=== PATIENT | female | born 1990 | race Hispanic/Latino ===

== ENCOUNTER 2017-04-22 15:08 | Emergency (ER) | payer BC, OTHER ==
[2017-04-22 15:08] VITALS: BMI 34.7
[2017-04-22 15:15] VITALS: BP 162/92; PULSE 89; RESP 16; TEMP 97.6; O2SAT 100
--- NOTE | 2017-04-22 15:56 | ED PDOC ---
HPI: General Adult Time Seen by Provider: 04/22/17 15:18 Chief Complaint (Nursing): Back Pain Chief Complaint (Provider): Flank Pain History Per: Patient History/Exam Limitations: no limitations Onset/Duration Of Symptoms: Other (x 1 week) Current Symptoms Are (Timing): Still Present Additional Complaint(s): Ms. Adams is a 26 year old female, with a history of UTI and asthma, who presents to the ED with bilateral flank pain x 1 week. Patient states sometimes on one side and sometimes on the other side. No fever, nausea, vomiting, dysuria , hematuria or vaginal discharge. LMP 2 days ago. Patient works here. Urine dip was done here and showed trace leukocytes. Patient states pain worsen. PMD: No Family Provider. Past Medical History Reviewed: Historical Data, Nursing Documentation, Vital Signs Vital Signs: Last Vital Signs Temp 97.6 F 04/22/17 15:12 Pulse 89 04/22/17 15:12 Resp 16 04/22/17 15:12 BP 162/92 H 04/22/17 15:12 Pulse Ox 100 04/22/17 16:15 - Medical History PMH: Asthma (never hospitalized), Bronchitis (mar 2016), Fibromyalgia Denies: Chronic Kidney Disease - Surgical History Surgical History: Tonsillectomy - Family History Family History: States: No Known Family Hx - Home Medications Home Medications: Ambulatory Orders Medication Instructions Recorded Ondansetron [Zofran] 4 mg PO Q8H PRN #30 tab 04/06/16 Albuterol 0.083% [Albuterol 0.083% 1 appl IH BID PRN 06/22/16 Inhal Yamila (2.5 mg/3 ml) UD] Albuterol HFA [Ventolin HFA 90 2 puff IH Q6 PRN 06/22/16 mcg/actuation (8 g)] Budesonide/Formoterol Fumarate 2 puff IH BID 06/22/16 [Symbicort] Ethinyl Estradiol/Drospirenone 1 each PO DAILY 06/22/16 [Izzy 28 Tablet] Montelukast [Singulair] 10 mg PO HS 06/22/16 Omeprazole Magnesium [Prilosec Otc] 20 mg PO HS 06/22/16 - Allergies Allergies/Adverse Reactions: Allergies Allergy/AdvReac Type Severity Reaction Status Date / Time No Known Allergies Allergy Verified 04/22/17 15:12 Review of Systems ROS Statement: Except As Marked, All Systems Reviewed And Found Negative Constitutional: Negative for: Fever Gastrointestinal: Negative for: Nausea, Vomiting Genitourinary Female: Negative for: Dysuria, Vaginal Discharge Musculoskeletal: Positive for: Other (flank pain) Physical Exam - Reviewed Nursing Documentation Reviewed: Yes Vital Signs Reviewed: Yes - Physical Exam Appears: Positive for: Well, Non-toxic, No Acute Distress Head Exam: Positive for: ATRAUMATIC, NORMAL INSPECTION, NORMOCEPHALIC Skin: Positive for: Normal Color, Warm, Dry Eye Exam: Positive for: Normal appearance, EOMI, PERRL ENT: Positive for: Normal ENT Inspection Neck: Positive for: Normal, Supple Cardiovascular/Chest: Positive for: Regular Rate, Rhythm Respiratory: Positive for: Normal Breath Sounds. Negative for: Accessory Muscle Use, Respiratory Distress Gastrointestinal/Abdominal: Positive for: Normal Exam Back: Positive for: Normal Inspection. Negative for: L CVA Tenderness, R CVA Tenderness Extremity: Positive for: Normal ROM. Negative for: Deformity Neurologic/Psych: Positive for: Alert, marine diesel mechanic II-XII, Oriented (x 3). Negative for : Motor/Sensory Deficits - Laboratory Results Urine POC: Negative - ECG O2 Sat by Pulse Oximetry: 100 (RA) Pulse Ox Interpretation: Normal Medical Decision Making Medical Decision Making: Time: 15:25 Impression(s): Flank Pain r/o UTI Plan: - ED Urine - ED Urine Dipstick - Urine Culture - Urinalysis - Renal Ultrasound Scribe Attestation: Documented by Nikolay Hardy, acting as a scribe for Marilu Lizarraga MD Provider Scribe Attestation: All medical record entries made by the Scribe were at my direction and personally dictated by me. I have reviewed the chart and agree that the record accurately reflects my personal performance of the history, physical exam, medical decision making, and the department course for this patient. I have also personally directed, reviewed, and agree with the discharge instructions and disposition. discussed with patient regarding normal appearing kidneys on preliminary reading and absence of leukocytes in the UA. Will discharge. Disposition - Clinical Impression Clinical Impression: Flank pain - Patient ED Disposition Is Patient to be Admitted: No Doctor Will See Patient In The: Office Counseled Patient/Family Regarding: Diagnosis, Need For Followup - Disposition Disposition: Routine/Home Disposition Time: 17:59 Condition: STABLE Instructions: Flank Pain Forms: [facility] ([place]), [facility] ED School/Work Excuse - POA Present On Arrival: None
[2017-04-22 17:13] LABS: SQUAMOUS EPITHIAL 2 /hpf (0-5); URINE BACTERIA RARE (<OCC); URINE BILIRUBIN NEGATIVE (NEGATIVE); URINE BLOOD NEGATIVE (NEGATIVE); URINE CLARITY SLIGHTY-CLOUDY (Clear); URINE COLOR YELLOW (YELLOW); URINE GLUCOSE (UA) NEG (Normal); URINE LEUKOCYTE ESTERASE TRACE Leu/uL (Negative); URINE PROTEIN NEGATIVE (NEGATIVE); URINE UROBILINOGEN 0.2-1.0 mg/dL (0.2-1.0)
--- NOTE | 2017-04-23 10:21 | US ---
PROCEDURE: Ultrasound of the Kidneys HISTORY: flank pain x 1 week, persistent trace leuks in dip COMPARISON: None available. TECHNIQUE: Sonogram of the kidneys. FINDINGS: RIGHT KIDNEY: Measures: 9.6 x 5.5 x 5.6 cm. No obstructing calculus, hydronephrosis, or renal cyst identified. LEFT KIDNEY: Measures: 10.9 x 5.3 x 5.6 cm. No obstructing calculus, hydronephrosis, or renal cyst identified. OTHER FINDINGS: None. IMPRESSION: No obstructing calculus, hydronephrosis, or renal cyst identified. Renal size discrepancy with left kidney larger than the right as above. Preliminary impression was provided by virtual radiologic.
== END 2017-04-22 18:09 | disposition home or self-care (01) ==
LOC: H.ER 15:08
DX: R10.9 Unspecified abdominal pain (principal)

== ENCOUNTER 2017-06-15 17:23 | Emergency (ER) | payer OTHER ==
[2017-06-15 17:24] VITALS: BMI 34.7
[2017-06-15 17:34] VITALS: BP 138/89; PULSE 84; RESP 18; TEMP 98.2; O2SAT 99
[2017-06-15] MEDS ORDERED: Tdap Vaccine 0.5 ml Vial (10-64 yrs) IM ONE ×2 (17:37→17:47)
--- NOTE | 2017-06-15 17:43 | ED PDOC ---
Upper Extremity Pain/Injury Time Seen by Provider: 06/15/17 17:36 Chief Complaint (Nursing): Upper Extremity Problem/Injury Chief Complaint (Provider): Right index finger puncture wound History Per: Patient History/Exam Limitations: no limitations Onset/Duration Of Symptoms: Mins Current Symptoms Are (Timing): Still Present Additional Complaint(s): Puncture wound right index finger at work. Tetanus is not UTD. Past Medical History Reviewed: Historical Data, Nursing Documentation, Vital Signs Vital Signs: Last Vital Signs Temp 98.2 F 06/15/17 17:30 Pulse 84 06/15/17 17:30 Resp 18 06/15/17 17:30 BP 138/89 06/15/17 17:30 Pulse Ox 99 06/15/17 17:30 - Medical History PMH: Asthma (never hospitalized), Bronchitis (mar 2016), Fibromyalgia Denies: Chronic Kidney Disease - Surgical History Surgical History: Tonsillectomy - Family History Family History: States: No Known Family Hx - Living Arrangements Living Arrangements: With Family - Social History Current smoker - smoking cessation education provided: No Alcohol: Occasional Drugs: Denies - Home Medications Home Medications: Ambulatory Orders Medication Instructions Recorded Ondansetron [Zofran] 4 mg PO Q8H PRN #30 tab 04/06/16 Albuterol 0.083% [Albuterol 0.083% 1 appl IH BID PRN 06/22/16 Inhal Yamila (2.5 mg/3 ml) UD] Albuterol HFA [Ventolin HFA 90 2 puff IH Q6 PRN 06/22/16 mcg/actuation (8 g)] Budesonide/Formoterol Fumarate 2 puff IH BID 06/22/16 [Symbicort] Ethinyl Estradiol/Drospirenone 1 each PO DAILY 06/22/16 [Izzy 28 Tablet] Montelukast [Singulair] 10 mg PO HS 06/22/16 Omeprazole Magnesium [Prilosec Otc] 20 mg PO HS 06/22/16 Amoxicillin/Clavulanate [Augmentin 1 tab PO BID #20 tab 06/15/17 875 MG-125 MG] - Allergies Allergies/Adverse Reactions: Allergies Allergy/AdvReac Type Severity Reaction Status Date / Time No Known Allergies Allergy Verified 04/22/17 15:12 Review of Systems ROS Statement: Except As Marked, All Systems Reviewed And Found Negative Constitutional: Negative for: Fever, Chills Skin: Positive for: Other Physical Exam - Reviewed Nursing Documentation Reviewed: Yes Vital Signs Reviewed: Yes - Physical Exam Appears: Positive for: Well, Non-toxic, No Acute Distress Head Exam: Positive for: ATRAUMATIC, NORMAL INSPECTION, NORMOCEPHALIC Skin: Positive for: Warm. Negative for: Normal Color (right index finger, puncture wound) Eye Exam: Positive for: Normal appearance ENT: Positive for: Normal ENT Inspection Neck: Positive for: Normal Respiratory: Negative for: Accessory Muscle Use, Respiratory Distress Back: Positive for: Normal Inspection Extremity: Positive for: Normal ROM Neurologic/Psych: Positive for: Alert, Oriented - ECG O2 Sat by Pulse Oximetry: 99 Medical Decision Making Medical Decision Making: Tetanus vaccine given in ER. Antibiotic and dressing applied. Disposition - Clinical Impression Clinical Impression: Tetanus toxoid vaccination administered at current visit, Puncture wound - Patient ED Disposition Is Patient to be Admitted: No Counseled Patient/Family Regarding: Diagnosis, Need For Followup, Rx Given - Disposition Disposition: Routine/Home Disposition Time: 17:43 Condition: GOOD Prescriptions: Amoxicillin/Clavulanate [Augmentin 875 MG-125 MG] 1 tab PO BID #20 tab Instructions: Wound Care (DC)
== END 2017-06-15 17:53 | disposition home or self-care (01) ==
LOC: H.ER 17:23
DX: S61.240A Puncture wound with foreign body of right index finger without damage to nail, initial encounter (principal); W26.8XXA Contact with other sharp object(s), not elsewhere classified, initial encounter; Y99.0 Civilian activity done for income or pay

== ENCOUNTER 2018-02-05 14:54 | Emergency (ER) | payer OTHER ==
[2018-02-05 14:54] VITALS: BMI 34.7
[2018-02-05] MEDS ORDERED: Lactated Ringer's 1,000 ML IV STA (15:28)
[2018-02-05 16:07] LABS: BASO % 0.3 % (0.0-2.0); EOS % 0.5 % (0.0-4.0); HEMOGLOBIN 14.1 g/dL (12.0-16.0); LYMPH # 1.5 K/uL (1.0-4.3); LYMPH % 27.2 % (20.0-40.0); MEAN CELL VOLUME 87.7 fl (81.0-99.0); MEAN CORPUSCULAR HEMOGLOBIN 29.1 pg (27.0-31.0); MEAN CORPUSCULAR HGB CONC 33.2 g/dL (33.0-37.0); MONO # 0.5 K/uL (0.0-0.8); MONO % 8.5 % (0.0-10.0); NEUT # 3.4 K/uL (1.8-7.0); NEUT % 63.5 % (50.0-75.0); NRBC % 0.1 % (0.0-0.0); RBC 4.85 Mil/uL (3.80-5.20); RED CELL DISTRIBUTION WIDTH 14.2 % (11.5-14.5); WHITE BLOOD COUNT 5.4 K/uL (4.8-10.8)
[2018-02-05 16:09] LABS: INR 1.1; PROTHROMBIN TIME 12.9 Seconds (9.8-13.1)
[2018-02-05 16:15] LABS: ALBUMIN 4.3 g/dL (3.5-5.0); BLOOD UREA NITROGEN 13 mg/dl (7-17); CALCIUM 8.5 mg/dL (8.4-10.2); GFR NON-AFRICAN AMERICAN > 60; LIPASE 87 U/L (23-300)
--- NOTE | 2018-02-05 16:29 | ED PDOC ---
HPI: Abdomen Time Seen by Provider: 02/05/18 15:12 Chief Complaint (Nursing): Abdominal Pain Chief Complaint (Provider): Abdominal Pain History Per: Patient History/Exam Limitations: no limitations Onset/Duration Of Symptoms: Days (x1 night) Associated Symptoms: Nausea, Diarrhea. denies: Fever, Chills, Vomiting Additional Complaint(s): Angie Antno is a 27 year old female with no past medical history, who presents to the emergency department complaining of abdominal pain that started last night around 6pm. Patient describes it as cramping pain and associated with multiple episodes of non bloody diarrhea. She reports that the cramping pain is diffuse and occurs intermittently. Patient also states that she has constant pain in the RUQ, nausea, and loss of appetite. She denies any fever, chills travel, vomiting, urinary symptoms. 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 PMD: no provider OBGYN: Dr. Medina Past Medical History Vital Signs: Last Vital Signs Temp 98.0 F 02/05/18 15:07 Pulse 116 H 02/05/18 15:07 Resp 20 02/05/18 15:07 BP 136/91 H 02/05/18 15:07 Pulse Ox 99 02/05/18 15:07 - Medical History PMH: Asthma (never hospitalized), Bronchitis (mar 2016), Fibromyalgia Denies: Chronic Kidney Disease - Surgical History Surgical History: Tonsillectomy Other surgeries: adenoidectomy - Family History Family History: States: Unknown Family Hx - Home Medications Home Medications: Ambulatory Orders Medication Instructions Recorded Ondansetron [Zofran] 4 mg PO Q8H PRN #30 tab 04/06/16 Albuterol 0.083% [Albuterol 0.083% 1 appl IH BID PRN 06/22/16 Inhal Yamila (2.5 mg/3 ml) UD] Albuterol HFA [Ventolin HFA 90 2 puff IH Q6 PRN 06/22/16 mcg/actuation (8 g)] Budesonide/Formoterol Fumarate 2 puff IH BID 06/22/16 [Symbicort] Ethinyl Estradiol/Drospirenone 1 each PO DAILY 06/22/16 [Izzy 28 Tablet] Montelukast [Singulair] 10 mg PO HS 06/22/16 Omeprazole Magnesium [Prilosec Otc] 20 mg PO HS 06/22/16 Amoxicillin/Clavulanate [Augmentin 1 tab PO BID #20 tab 06/15/17 875 MG-125 MG] Dicyclomine [Bentyl] 20 mg PO QID PRN #20 tab 02/05/18 Ondansetron ODT [Zofran ODT] 1 odt PO Q6 PRN #20 odt 02/05/18 - Allergies Allergies/Adverse Reactions: Allergies Allergy/AdvReac Type Severity Reaction Status Date / Time No Known Allergies Allergy Verified 04/22/17 15:12 Review of Systems ROS Statement: Except As Marked, All Systems Reviewed And Found Negative Constitutional: Negative for: Fever, Chills Gastrointestinal: Positive for: Nausea, Abdominal Pain, Diarrhea. Negative for: Vomiting Physical Exam - Reviewed Nursing Documentation Reviewed: Yes Vital Signs Reviewed: Yes - Physical Exam Appears: Positive for: Non-toxic, In Acute Distress (mild painful distress ) Head Exam: Positive for: ATRAUMATIC, NORMOCEPHALIC Skin: Positive for: Warm, Dry Eye Exam: Positive for: EOMI, PERRL ENT: Negative for: Pharyngeal Erythema, Tonsillar Exudate Neck: Positive for: Painless ROM, Supple Cardiovascular/Chest: Positive for: Regular Rate, Rhythm. Negative for: Murmur Respiratory: Positive for: Normal Breath Sounds. Negative for: Wheezing Gastrointestinal/Abdominal: Positive for: Soft, Tenderness (with deep palpations of RUQ). Negative for: Mass, Distended, Guarding, Rebound, Other (Mcburney's point; Tiki's sign) Back: Positive for: Normal Inspection. Negative for: Muscle Spasm Extremity: Positive for: Normal ROM. Negative for: Deformity Lymphatic: Negative for: Adenopathy Neurologic/Psych: Positive for: Alert. Negative for: Motor/Sensory Deficits - Laboratory Results Result Diagrams: 02/05/18 16:01 02/05/18 16:01 - ECG O2 Sat by Pulse Oximetry: 99 (RA) Pulse Ox Interpretation: Normal Medical Decision Making Medical Decision Making: Time: 152 Impression: abdominal pain and diarrhea Differential diagnosis includes but is not limited to infectious diarrhea, gallbladder disease, pancreatitis Plan: --Cmp --Lipase --Magnesium phosphorous --Ed urine --Ed urine dipstick ---Cbc with differential --PTT --P T --Bentyl 20 mg PO --Lactated Rigners 1,000 ml --Urine culture --UA --Gallbladder US Accession No. : [id number] Patient Name / ID : SHANTELL NIX R / [id number] Exam Date : 02/05/2018 16:11:42 ( Approved ) Study Comment : Sex / Age : F / 27Y Creator : Ceferino Nagy MD Dictator : Ceferino Nagy MD Icing Machine Operator : Licensed And Certified Midwife : Ceferino Nagy MD Approver2 : Report Date : 02/05/2018 17:15:20 My Comment : Date of service: 02/05/2018 HISTORY: RUQ pain COMPARISON: None. TECHNIQUE: Sonographic evaluation of the right upper quadrant of the abdomen. FINDINGS: LIVER: Measures 15.0 cm in length. Normal echogenicity of the liver parenchyma. No mass. No intrahepatic bile duct dilatation. GALLBLADDER: Unremarkable. No gallstones. COMMON BILE DUCT: Measures 3 mm. No stones. No dilatation. PANCREAS: Unremarkable as visualized. No mass. No ductal dilatation. RIGHT KIDNEY: Measures 10.3 cm in length. Normal echogenicity. No calculus, mass, or hydronephrosis. AORTA: No aneurysmal dilatation. IVC: Unremarkable. OTHER FINDINGS: None . IMPRESSION: UNREMARKABLE ABDOMINAL ULTRASOUND EXAMINATION. NO EVIDENCE OF CHOLELITHIASIS OR CHOLECYSTITIS. Scribe Attestation: Documented by Dakota Baltazar, acting as a scribe for Khushboo Agarwal MD. Provider Scribe Attestation: All medical record entries made by the Scribe were at my direction and personally dictated by me. I have reviewed the chart and agree that the record accurately reflects my personal performance of the history, physical exam, medical decision making, and the department course for this patient. I have also personally directed, reviewed, and agree with the discharge instructions and disposition. Disposition - Clinical Impression Clinical Impression: Abdominal pain, Diarrhea - Disposition Referrals: [facility] [Outside] Disposition: Routine/Home Disposition Time: 17:15 Condition: STABLE Additional Instructions: FOLLOW UP WITH YOUR DOCTOR OR [employer] IN 48 HOURS FOR REEVALUATION Prescriptions: Dicyclomine [Bentyl] 20 mg PO QID PRN #20 tab PRN Reason: abdominal pain Ondansetron ODT [Zofran ODT] 1 odt PO Q6 PRN #20 odt PRN Reason: Nausea/Vomiting Instructions: Diarrhea in Adolescents and Adults, Acute Abdomen (Belly Pain), Adult (DC) Forms: [facility] ED School/Work Excuse
[2018-02-05 16:31] LABS: ALT/SGPT 23 U/L (9-52); AST/SGOT 28 U/L (14-36)
[2018-02-05 16:59] LABS: SQUAMOUS EPITHIAL 5 /hpf (0-5); URINE BACTERIA RARE (<OCC); URINE BILIRUBIN NEGATIVE (NEGATIVE); URINE BLOOD NEGATIVE (NEGATIVE); URINE CLARITY CLOUDY (Clear); URINE COLOR YELLOW (YELLOW); URINE GLUCOSE (UA) NEG (NEGATIVE); URINE LEUKOCYTE ESTERASE TRACE Leu/uL (Negative); URINE PROTEIN NEGATIVE (NEGATIVE); URINE UROBILINOGEN 0.2-1.0 mg/dL (0.2-1.0)
--- NOTE | 2018-02-05 17:19 | US ---
Date of service: 02/05/2018 HISTORY: RUQ pain COMPARISON: None. TECHNIQUE: Sonographic evaluation of the right upper quadrant of the abdomen. FINDINGS: LIVER: Measures 15.0 cm in length. Normal echogenicity of the liver parenchyma. No mass. No intrahepatic bile duct dilatation. GALLBLADDER: Unremarkable. No gallstones. COMMON BILE DUCT: Measures 3 mm. No stones. No dilatation. PANCREAS: Unremarkable as visualized. No mass. No ductal dilatation. RIGHT KIDNEY: Measures 10.3 cm in length. Normal echogenicity. No calculus, mass, or hydronephrosis. AORTA: No aneurysmal dilatation. IVC: Unremarkable. OTHER FINDINGS: None . IMPRESSION: UNREMARKABLE ABDOMINAL ULTRASOUND EXAMINATION. NO EVIDENCE OF CHOLELITHIASIS OR CHOLECYSTITIS.
[2018-02-05 18:03] VITALS: BP 132/58; PULSE 82; RESP 18; TEMP 98
[2018-02-10 15:37] VITALS: O2SAT 99
== END 2018-02-05 17:50 | disposition home or self-care (01) ==
LOC: H.ER 14:54
DX: R10.9 Unspecified abdominal pain (principal); R19.7 Diarrhea, unspecified
CPT/HCPCS: 76705; 80053; 81003; 83690; 83735; 84100; 85025; 85610; 85730; 87086; 99283; J7120

== ENCOUNTER 2018-06-06 15:00 | Observation (INO) | payer OTHER ==
[2018-06-06] MEDS ORDERED: Sodium Chloride 0.9% 1,000 ML IV STA (15:29)
--- NOTE | 2018-06-06 15:37 | ED PDOC ---
HPI: Abdomen Time Seen by Provider: 06/06/18 15:24 Chief Complaint (Nursing): Abdominal Pain Chief Complaint (Provider): Abdominal pain History Per: Patient Additional Complaint(s): 28 yo female, no PMH, presents to ED complaining of constant suprapubic abdominal pain and intermittent bilateral flank pain. Says the pain started about 1 week ago but got worse last night. Reports increase in pain after walking and during ambulation. Also complaining of nausea. Denies vomiting, fever, diarrhea. Pt reports LMP was May 15. Preg test in triage (-) Pt denies any concern for STI's, denies any vaginal discharge or lesions Past Medical History Reviewed: Nursing Documentation, Vital Signs Vital Signs: Last Vital Signs Temp 97.8 F 06/06/18 15:02 Pulse 100 H 06/06/18 15:02 Resp 18 06/06/18 15:02 BP 135/91 H 06/06/18 15:02 Pulse Ox 98 06/06/18 15:02 - Medical History PMH: Asthma (never hospitalized), Bronchitis (mar 2016), Fibromyalgia Denies: Chronic Kidney Disease - Surgical History Surgical History: Tonsillectomy - Family History Family History: States: Unknown Family Hx - Living Arrangements Living Arrangements: With Family - Social History Current smoker - smoking cessation education provided: No Alcohol: Social Drugs: Denies - Home Medications Home Medications: Ambulatory Orders Medication Instructions Recorded Ondansetron [Zofran] 4 mg PO Q8H PRN #30 tab 04/06/16 Albuterol 0.083% [Albuterol 0.083% 1 appl IH BID PRN 06/22/16 Inhal Yamila (2.5 mg/3 ml) UD] Albuterol HFA [Ventolin HFA 90 2 puff IH Q6 PRN 06/22/16 mcg/actuation (8 g)] Budesonide/Formoterol Fumarate 2 puff IH BID 06/22/16 [Symbicort] Ethinyl Estradiol/Drospirenone 1 each PO DAILY 06/22/16 [Izzy 28 Tablet] Montelukast [Singulair] 10 mg PO HS 06/22/16 Omeprazole Magnesium [Prilosec Otc] 20 mg PO HS 06/22/16 Amoxicillin/Clavulanate [Augmentin 1 tab PO BID #20 tab 06/15/17 875 MG-125 MG] Dicyclomine [Bentyl] 20 mg PO QID PRN #20 tab 02/05/18 Ondansetron ODT [Zofran ODT] 1 odt PO Q6 PRN #20 odt 02/05/18 - Allergies Allergies/Adverse Reactions: Allergies Allergy/AdvReac Type Severity Reaction Status Date / Time No Known Allergies Allergy Verified 06/06/18 15:02 Review of Systems ROS Statement: Except As Marked, All Systems Reviewed And Found Negative Gastrointestinal: Positive for: Abdominal Pain Physical Exam - Reviewed Nursing Documentation Reviewed: Yes Vital Signs Reviewed: Yes - Physical Exam Appears: Positive for: Well, Non-toxic, No Acute Distress Head Exam: Positive for: ATRAUMATIC, NORMAL INSPECTION, NORMOCEPHALIC Skin: Positive for: Normal Color, Warm, DRY Eye Exam: Positive for: EOMI, Normal appearance, PERRL ENT: Positive for: Normal ENT Inspection Neck: Positive for: Normal, Painless ROM Cardiovascular/Chest: Positive for: Regular Rate, Rhythm Respiratory: Positive for: CNT, Normal Breath Sounds Gastrointestinal/Abdominal: Positive for: Soft, Tenderness (suprapubic, R and L LQ). Negative for: Distended Pelvic Exam: Positive for: Other (deferred) Back: Positive for: Normal Inspection Extremity: Positive for: Normal ROM Neurological/Psych: Positive for: Awake, Alert, Normal Tone - Laboratory Results Result Diagrams: 06/06/18 16:00 06/06/18 16:00 - ECG O2 Sat by Pulse Oximetry: 98 Medical Decision Making Medical Decision Making: Iv access established and treatment initiated with IV Toradol and Zofran Labs resulted and reviewed with Pt US: Trace left para ovarian fluid. on re-eval, Pt still with pelvic pain. IV Morphine administered. CT can ordered. Pt again deferred pelvic Case endorsed to LEONIE Covarrubias at 2000 pending diagnotic review and re-eval Disposition - Clinical Impression Clinical Impression: Pelvic pain - Patient ED Disposition Is Patient to be Admitted: Transfer of Care - Disposition Disposition: Transfer of Care Disposition Time: 19:40 Condition: STABLE Forms: [facility] ([place])
[2018-06-06 16:25] LABS: BASO # 0.1 K/uL (0.0-0.2); BASO % 0.7 % (0.0-2.0); EOS # 0.3 K/uL (0.0-0.7); EOS % 3.3 % (0.0-4.0); HEMOGLOBIN 13.8 g/dL (12.0-16.0); LYMPH # 2.6 K/uL (1.0-4.3); MEAN CORPUSCULAR HEMOGLOBIN 29.4 pg (27.0-31.0); MEAN CORPUSCULAR HGB CONC 33.8 g/dL (33.0-37.0); MONO # 0.6 K/uL (0.0-0.8); MONO % 7.3 % (0.0-10.0); NEUT # 4.5 K/uL (1.8-7.0); NEUT % 55.7 % (50.0-75.0); NRBC % 0.2 % (0.0-0.0); RBC 4.69 Mil/uL (3.80-5.20); RED CELL DISTRIBUTION WIDTH 14.3 % (11.5-14.5)
[2018-06-06 16:28] LABS: ALB/GLOB RATIO 1.1 (1.0-2.1); ALBUMIN 4.6 g/dL (3.5-5.0); ALT/SGPT 20 U/L (9-52); AMYLASE 83 U/L (30-110); AST/SGOT 25 U/L (14-36); BLOOD UREA NITROGEN 15 mg/dl (7-17); CALCIUM 9.3 mg/dL (8.4-10.2); GFR NON-AFRICAN AMERICAN > 60; LIPASE 88 U/L (23-300)
[2018-06-06 16:32] LABS: SQUAMOUS EPITHIAL 4 /hpf (0-5); URINE BACTERIA OCC (<OCC); URINE BILIRUBIN NEGATIVE (NEGATIVE); URINE BLOOD NEGATIVE (NEGATIVE); URINE CLARITY CLOUDY (Clear); URINE COLOR YELLOW (YELLOW); URINE GLUCOSE (UA) NEG (NEGATIVE); URINE LEUKOCYTE ESTERASE TRACE Leu/uL (Negative); URINE PROTEIN NEGATIVE (NEGATIVE); URINE UROBILINOGEN 0.2-1.0 mg/dL (0.2-1.0)
--- NOTE | 2018-06-06 18:41 | US ---
Date of service: 06/06/2018 HISTORY: pelvic pain COMPARISON: None available. TECHNIQUE: Real-time transabdominal pelvic ultrasound was performed. In addition a transvaginal pelvic ultrasound was necessary to better depict pelvic anatomy. FINDINGS: UTERUS: Measures 7.0 x 2.8 x 3.9 cm. ENDOMETRIUM: Measures 7 mm in diameter. CERVIX: No cervical abnormality identified. RIGHT OVARY: Measures 1.5 x 1.0 x 1.9 cm. Blood flow is demonstrated. LEFT OVARY: Measures 2.9 x 1.9 x 2.4 cm. Blood flow is demonstrated. FREE FLUID: Trace left para ovarian fluid. OTHER FINDINGS: None. IMPRESSION: Trace left para ovarian fluid.
[2018-06-06] MEDS ORDERED: Iohexol 240 (50 ml) PO ONE (19:07)
[2018-06-06] MEDS ORDERED: Iohexol 240 (50 ml) ONE (19:19)
[2018-06-06] MEDS ORDERED: Sodium Chloride 0.9% 50 ML IV ONE (21:18)
[2018-06-06] MEDS ORDERED: Iohexol 300 100 ML IJ ONE (21:18)
--- NOTE | 2018-06-06 23:21 | ED PDOC ---
- Laboratory Results Result Diagrams: 06/06/18 16:00 06/06/18 16:00 Lab Results: Total Bilirubin 0.7 mg/dl (0.2-1.3) 06/06/18 16:00 AST 25 U/L (14-36) 06/06/18 16:00 ALT 20 U/L (9-52) 06/06/18 16:00 Alkaline Phosphatase 98 U/L (38-126) 06/06/18 16:00 Total Protein 8.8 G/DL (6.3-8.2) H 06/06/18 16:00 Albumin 4.6 g/dL (3.5-5.0) 06/06/18 16:00 Globulin 4.1 gm/dL (2.2-3.9) H 06/06/18 16:00 Albumin/Globulin Ratio 1.1 (1.0-2.1) 06/06/18 16:00 Amylase 83 U/L (30-110) 06/06/18 16:00 Lipase 88 U/L (23-300) 06/06/18 16:00 Urine Color Yellow (YELLOW) 06/06/18 16:00 Urine Clarity Cloudy (Clear) 06/06/18 16:00 Urine pH 5.0 (5.0-8.0) 06/06/18 16:00 Ur Specific [place] 1.023 (1.003-1.030) 06/06/18 16:00 Urine Protein Negative mg/dL (NEGATIVE) 06/06/18 16:00 Urine Glucose (UA) Neg mg/dL (NEGATIVE) 06/06/18 16:00 Urine Ketones Negative mg/dL (NEGATIVE) 06/06/18 16:00 Urine Blood Negative (NEGATIVE) 06/06/18 16:00 Urine Nitrate Negative (NEGATIVE) 06/06/18 16:00 Urine Bilirubin Negative (NEGATIVE) 06/06/18 16:00 Urine Urobilinogen 0.2-1.0 mg/dL (0.2-1.0) 06/06/18 16:00 Ur Leukocyte Esterase Trace [place]/uL (Negative) 06/06/18 16:00 Urine RBC (Auto) 3 /hpf (0-3) 06/06/18 16:00 Urine Microscopic WBC 5 /hpf (0-5) 06/06/18 16:00 Ur Squamous Epith Cells 4 /hpf (0-5) 06/06/18 16:00 Urine Bacteria Occ (<OCC) H 06/06/18 16:00 - ECG O2 Sat by Pulse Oximetry: 99 - Progress ED Course And Treament: Csae endorsed to tag writer from Dio HADLEY pending CT EXAM: CT Abdomen and Pelvis with IV contrast CLINICAL HISTORY: PELVIC PAIN, ABD PAIN TECHNIQUE: Axial computed tomography images of the abdomen and pelvis with intravenous contrast. 923.42 mGy-cm CONTRAST: With; [id number] 95ML COMPARISON: None provided. FINDINGS: LUNG BASES: The heart is mildly enlarged. LIVER: Unremarkable. GALLBLADDER AND BILE DUCTS: The gallbladder appears within normal limits. No radioopaque gallstones are seen. No biliary ductal dilatation is evident. PANCREAS: Some prominence of the pancreatic head measuring 4.3 cm in greatest dimension on series 2, image 29. Please correlate clinically and if indicated this could be further evaluated with MRCP or ERCP. SPLEEN: Unremarkable. ADRENAL GLANDS: Unremarkable. KIDNEYS, URETERS, AND BLADDER: The kidneys appear within normal limits. There is no hydronephrosis or hydroureter. No urinary calculi are seen. STOMACH AND BOWEL: Unremarkable appearance of the stomach and bowel. No evidence of bowel obstruction. No evidence suggesting enteritis or colitis. APPENDIX: The appendix appears shortened in length however is borderline prominent at its distal tip measuring 6 mm in greatest diameter. Most probably this reflects a normal appendix however it is difficult to exclude tip appendicitis. Please correlate clinically and if indicated followup could be obtained. PERITONEUM: No free fluid. No free air. LYMPH NODES: No lymphadenopathy is evident. REPRODUCTIVE: Unremarkable as visualized. VASCULATURE: No evidence of abdominal aortic aneurysm. BONES: No aggressive appearing osseous lesion. No acute osseous pathology evident. IMPRESSION: 1. The heart is mildly enlarged. 2. Some prominence of the pancreatic head measuring 4.3 cm in greatest dimension on series 2, image 29. Please correlate clinically and if indicated this could be further evaluated with MRCP or ERCP. 3. The appendix appears shortened in length however is borderline prominent at its distal tip measuring 6 mm in greatest diameter. Most probably this reflects a normal appendix however it is difficult to exclude tip appendicitis. Please correlate clinically and if indicated followup could be obtained. 4. Additional, incidental findings as described above. On re-eval, patient ammonia distiller in RLQ, suprapubic region Patient evaluated by ED attending Dr. De La Torre; will admit for obs and obtain surgical eval Patient requesting surgery consult with Dr. Boaz Smith. Call placed to service Unable to reach Dr. Smith, consultation will be placed under Dr. Leone, Surgeon on-call at this time Case discussed with Dr. Avalos, surgical assist on-call, regarding consult Disposition - Clinical Impression Clinical Impression: Intractable abdominal pain - POA Present On Arrival: None - Disposition Disposition: Hospitalized as Observation Patient Disposition Time: 23:30 Condition: FAIR
--- NOTE | 2018-06-06 23:59 | CP.PCM.CON ---
History of Present Illness - History of Present Illness History of Present Illness: General Surgery-Dr. Leone 28 yo F w/ lower abdominal pain x1week. Pt states the pain began about a week ago but became significantly worse today. She describes it as lower abdominal/pelvic region and radiating into the b/l flanks. She felt mild nausea this morning but has since resolved and currently pt states she feels hungry. She denies any fevers or chills, diarrhea, constipation, dysuria, hematuria, shortness of breath or chest pain. Pt states that she has regular menstrual cycles and sees Dr. Medina as her CONSULTING SME, FDLMP was May 15. PMH: asthma, fibromyalgia PSH: tonsillectomy, knee surgery NKDA No meds Social ETOH, no tobacco or drug use Review of Systems - Review of Systems All systems: reviewed and no additional remarkable complaints except (as per HPI) Past Patient History - Infectious Disease Hx of Infectious Diseases: None - Past Medical History & Family History Past Medical History?: Yes - Past Social History Alcohol: Social Drugs: Denies - CARDIAC Hx Cardiac Disorders: No - PULMONARY Hx Asthma: Yes (never hospitalized) Hx Bronchitis: Yes (mar 2016) - NEUROLOGICAL Hx Neurological Disorder: Yes - HEENT Hx HEENT Problems: No - RENAL Hx Chronic Kidney Disease: No - ENDOCRINE/METABOLIC Hx Endocrine Disorders: No - HEMATOLOGICAL/ONCOLOGICAL Hx Blood Disorders: No - INTEGUMENTARY Hx Dermatological Problems: Yes Other/Comment: Sebaceous cyst, back - MUSCULOSKELETAL/RHEUMATOLOGICAL Hx Musculoskeletal Disorders: Yes - GASTROINTESTINAL Hx Gastrointestinal Disorders: Yes Hx Gastroesophageal Reflux: Yes - GENITOURINARY/GYNECOLOGICAL Hx Genitourinary Disorders: No - PSYCHIATRIC Hx Psychophysiologic Disorder: No Hx Substance Use: No - SURGICAL HISTORY Hx Tonsillectomy: Yes - ANESTHESIA Hx Anesthesia: Yes Hx Anesthesia Reactions: No Hx Malignant Hyperthermia: No Meds Allergies/Adverse Reactions: Allergies Allergy/AdvReac Type Severity Reaction Status Date / Time No Known Allergies Allergy Verified 06/06/18 15:02 Physical Exam - Constitutional Appears: No Acute Distress - Head Exam Head Exam: ATRAUMATIC, NORMAL INSPECTION, NORMOCEPHALIC - Eye Exam Eye Exam: Normal appearance - Respiratory Exam Respiratory Exam: NORMAL BREATHING PATTERN. absent: Respiratory Distress - Cardiovascular Exam Cardiovascular Exam: REGULAR RHYTHM - GI/Abdominal Exam GI & Abdominal Exam: Soft, Tenderness (mild ttp suprapubic). absent: Distended, Firm, Guarding, Hernia, Rebound, Rigid - Neurological Exam Neurological exam: Alert, Oriented x3 - Psychiatric Exam Psychiatric exam: Normal Affect, Normal Mood - Skin Skin Exam: Dry, Intact Results - Vital Signs Recent Vital Signs: Last Vital Signs Temp 97.8 F 06/06/18 15:02 Pulse 88 06/06/18 22:24 Resp 16 06/06/18 22:24 BP 160/118 H 06/06/18 22:24 Pulse Ox 99 06/06/18 23:50 - Labs Result Diagrams: 06/06/18 16:00 06/06/18 16:00 Labs: Laboratory Results - last 24 hr 06/06/18 06/06/18 06/06/18 16:00 16:00 16:00 WBC 8.0 RBC 4.69 Hgb 13.8 Hct 40.8 MCV 87.0 MCH 29.4 MCHC 33.8 RDW 14.3 Plt Count 364 MPV 8.0 Neut % (Auto) 55.7 Lymph % (Auto) 33.0 [place] % (Auto) 7.3 Eos % (Auto) 3.3 Baso % (Auto) 0.7 Neut # (Auto) 4.5 Lymph # (Auto) 2.6 [place] # (Auto) 0.6 Eos # (Auto) 0.3 Baso # (Auto) 0.1 Sodium 135 Potassium 3.9 Chloride 102 Carbon Dioxide 21 L Anion Gap 16 BUN 15 Creatinine 0.8 Est GFR ( Amer) > 60 Est GFR (Non-Af Amer) > 60 Random Glucose 88 Calcium 9.3 Total Bilirubin 0.7 AST 25 ALT 20 Alkaline Phosphatase 98 Total Protein 8.8 H Albumin 4.6 Globulin 4.1 H Albumin/Globulin Ratio 1.1 Amylase 83 Lipase 88 Urine Color Yellow Urine Clarity Cloudy Urine pH 5.0 Ur Specific [place] 1.023 Urine Protein Negative Urine Glucose (UA) Neg Urine Ketones Negative Urine Blood Negative Urine Nitrate Negative Urine Bilirubin Negative Urine Urobilinogen 0.2-1.0 Ur Leukocyte Esterase Trace Urine RBC (Auto) 3 Urine Microscopic WBC 5 Ur Squamous Epith Cells 4 Urine Bacteria Occ H - Imaging and Cardiology CT scan - abdomen Status: Image reviewed by me, Report reviewed by me Assessment & Plan - Assessment and Plan (Free Text) Assessment: 28 yo F w/ worsening lower abdominal pain x1week -CT findings of shortened appendix with prominent tip, unable to R/O tip appendicitis -Maintain NPO, IVF -Pain control prn -Reassess in AM -Likely no surgical intervention but will Monitor DW Dr Vasu Avalos PGY4
[2018-06-07 02:32] VITALS: BMI 40.6
[2018-06-07] MEDS ORDERED: Albuterol-Ipratrop 3 mg / 0.5 (3 ml) UD INH PRN (06:26)
[2018-06-07] MEDS: Potassium Ch 20mEq in D5-1/2NS 1,000 ML IV SCH ×2 (06:31→15:50)
[2018-06-07 06:56] LABS: BASO % 0.5 % (0.0-2.0); EOS # 0.3 K/uL (0.0-0.7); EOS % 2.8 % (0.0-4.0); HEMOGLOBIN 12.7 g/dL (12.0-16.0); LYMPH # 3.7 K/uL (1.0-4.3); LYMPH % 39.5 % (20.0-40.0); MEAN CELL VOLUME 87.9 fl (81.0-99.0); MEAN CORPUSCULAR HEMOGLOBIN 28.9 pg (27.0-31.0); MEAN CORPUSCULAR HGB CONC 32.9 g/dL (33.0-37.0); MEAN PLATELET VOLUME 7.5 fl (7.2-11.7); MONO # 0.7 K/uL (0.0-0.8); MONO % 7.4 % (0.0-10.0); NEUT # 4.7 K/uL (1.8-7.0); NEUT % 49.8 % (50.0-75.0); NRBC % 0.1 % (0.0-0.0); RBC 4.38 Mil/uL (3.80-5.20); RED CELL DISTRIBUTION WIDTH 13.8 % (11.5-14.5); WHITE BLOOD COUNT 9.4 K/uL (4.8-10.8)
[2018-06-07 07:07] LABS: ALB/GLOB RATIO 1.1 (1.0-2.1); ALBUMIN 3.8 g/dL (3.5-5.0); ALT/SGPT 22 U/L (9-52); AST/SGOT 23 U/L (14-36); BLOOD UREA NITROGEN 12 mg/dl (7-17); CALCIUM 8.7 mg/dL (8.4-10.2); GFR NON-AFRICAN AMERICAN > 60
--- NOTE | 2018-06-07 08:25 | CP.PCM.PN ---
Subjective - Date & Time of Evaluation Date of Evaluation: 06/07/18 Time of Evaluation: 09:09 - Subjective Subjective: General Surgery Note for Dr. Leone Patient seen and examined at bedside. No acute evenat oevrnight. Patient states pain has resolved. Denies fever/chills or nausea/vomiting/diarrhea. Patient is requesting food. Admits to flatus. No other complaints at this time. Objective - Vital Signs/Intake and Output Vital Signs (last 24 hours): Temp Pulse Resp BP Pulse Ox 98.2 F 83 19 133/89 99 06/07/18 07:59 06/07/18 07:59 06/07/18 07:59 06/07/18 07:59 06/07/18 07:59 - Medications Medications: Current Medications Acetaminophen (Tylenol 325mg Tab) 650 mg PO Q6 PRN PRN Reason: Pain, Mild (1-3) Albuterol/Ipratropium (Duoneb 3 Mg/0.5 Mg (3 Ml) Ud) 3 ml INH RQ6 PRN PRN Reason: Shortness of Breath Potassium Chloride/Dextrose/Sod Cl (Potassium Chl 20 Meq In D5-1/2ns) 1,000 mls @ 125 mls/hr IV .Q8H VIJAY Stop: 06/08/18 06:08 Last Admin: 06/07/18 06:31 Dose: 125 mls/hr Ketorolac Tromethamine (Toradol) 30 mg IVP Q6 PRN PRN Reason: Pain, moderate (4-7) Morphine Sulfate (Morphine) 2 mg IVP Q4 PRN PRN Reason: Pain, severe (8-10) Ondansetron HCl (Zofran Inj) 4 mg IVP Q6 PRN PRN Reason: Nausea/Vomiting - Labs Labs: 06/07/18 06:33 06/07/18 06:33 - Additional Findings Additional findings: - Constitutional Appears: No Acute Distress - Head Exam Head Exam: ATRAUMATIC, NORMAL INSPECTION, NORMOCEPHALIC - Eye Exam Eye Exam: Normal appearance - Respiratory Exam Respiratory Exam: NORMAL BREATHING PATTERN. absent: Respiratory Distress - Cardiovascular Exam Cardiovascular Exam: REGULAR RHYTHM - GI/Abdominal Exam GI & Abdominal Exam: Soft, Tenderness (mild ttp suprapubic). absent: Distended, Firm, Guarding, Hernia, Rebound, Rigid - Neurological Exam Neurological exam: Alert, Oriented x3 - Psychiatric Exam Psychiatric exam: Normal Affect, Normal Mood - Skin Skin Exam: Dry, Intact Assessment and Plan - Assessment and Plan (Free Text) Assessment: 28 F with worsening lower abdominal pain x 1 week -Patient asymptomatic -Likely ruptured ovarian cyst -Regular diet -Pain control prn -No surgical intervention needed at this time -If tolerating diet, patient cleared for discharge from surgical standpoint -Patient may follow up with GI or Dr. Christianson (hepatobilliary surgeon) for pancreatic head prominence -Discussed with Dr Vasu Cooper pGY2
--- NOTE | 2018-06-07 10:49 | CT ---
Date of service: 06/06/2018 PROCEDURE: CT Abdomen and Pelvis with contrast HISTORY: pelvic pain COMPARISON: Transvaginal pelvic ultrasound 06/06/2018, right upper quadrant abdomen ultrasound 01/23/2018 and renal ultrasound 04/22/2017. Complete abdomen ultrasound 04/06/2016. TECHNIQUE: Following oral and intravenous contrast administration, a CT examination of the abdomen and pelvis was performed from the domes of the diaphragms to the symphysis pubis with reformatted datasets provided not only axial but also sagittal and coronal series. Contrast dose: Omnipaque 300, 90 cc Radiation dose: Total exam DLP = 923.42 mGy-cm. This CT exam was performed using one or more of the following dose reduction techniques: Automated exposure control, adjustment of the mA and/or kV according to patient size, and/or use of iterative reconstruction technique. FINDINGS: LOWER THORAX: Trace bilateral basilar dependent atelectasis with lung bases otherwise unremarkable appearing. LIVER: Unremarkable. No gross lesion or ductal dilatation. GALLBLADDER AND BILE DUCTS: Unremarkable. PANCREAS: Unremarkable. No gross lesion or ductal dilatation. SPLEEN: Unremarkable. ADRENALS: Unremarkable. No mass. KIDNEYS AND URETERS: Unremarkable. No hydronephrosis. No solid mass. VASCULATURE: Unremarkable. No aortic aneurysm. No aortic atherosclerotic calcification or mural plaque present. BOWEL: Stomach is incompletely distended limiting its evaluation. No bowel obstruction or gross mural thickening appreciated throughout the large or small bowel. No local bowel mesenteric reaction identified. APPENDIX: Questionable prior appendectomy with residual stump versus very small appendix. The tibial destruction measures 5.5 mm. No local reaction associated. Appendicitis is felt to be unlikely. Clinically correlate nevertheless.. PERITONEUM: Unremarkable. No free fluid. No free air. LYMPH NODES: Few shotty pericecal lymph nodes are identified as well as in the central mesentery borderline for mesenteric adenitis. BLADDER: Unremarkable. REPRODUCTIVE: Previously suggested trace paraovarian fluid at the left adnexa compartment is not clearly identified currently. BONES: No acute fracture. OTHER FINDINGS: None. IMPRESSION: 1. Very small appendix versus prior appendectomy. No periesophageal reaction. The distal portion of this minimal structure is upper limits normal thickness for appendix at 5.5 mm. Clinically correlate further. 2. Mild prominence of the pancreatic head up to 4.3 cm. Consider follow-up MRI with without contrast. Are BUS TRANSPORTATION MANAGER may also be helpful though no prominence of the biliary tree is appreciable grossly. Concordant preliminary report from Miguel Angel, 06/06/2018, 11:04 p.m..
[2018-06-07 16:33] VITALS: BP 134/96; PULSE 59; RESP 18; TEMP 98.3; O2SAT 96
--- NOTE | 2018-06-07 19:04 | CP.PCM.HP ---
Past Patient History - Infectious Disease Hx of Infectious Diseases: None - Past Medical History & Family History Past Medical History?: Yes - Past Social History Alcohol: Social Drugs: Denies - CARDIAC Hx Cardiac Disorders: No - PULMONARY Hx Asthma: Yes (never hospitalized) Hx Bronchitis: Yes (mar 2016) - NEUROLOGICAL Hx Neurological Disorder: Yes - HEENT Hx HEENT Problems: No - RENAL Hx Chronic Kidney Disease: No - ENDOCRINE/METABOLIC Hx Endocrine Disorders: No - HEMATOLOGICAL/ONCOLOGICAL Hx Blood Disorders: No - INTEGUMENTARY Hx Dermatological Problems: Yes Other/Comment: Sebaceous cyst, back - MUSCULOSKELETAL/RHEUMATOLOGICAL Hx Musculoskeletal Disorders: Yes - GASTROINTESTINAL Hx Gastrointestinal Disorders: Yes Hx Gastroesophageal Reflux: Yes - GENITOURINARY/GYNECOLOGICAL Hx Genitourinary Disorders: No - PSYCHIATRIC Hx Psychophysiologic Disorder: No Hx Substance Use: No - SURGICAL HISTORY Hx Tonsillectomy: Yes - ANESTHESIA Hx Anesthesia: Yes Hx Anesthesia Reactions: No Hx Malignant Hyperthermia: No Meds Allergies/Adverse Reactions: Allergies Allergy/AdvReac Type Severity Reaction Status Date / Time No Known Allergies Allergy Verified 06/06/18 15:02 Results - Vital Signs Recent Vital Signs: Last Vital Signs Temp 98.3 F 06/07/18 16:33 Pulse 59 L 06/07/18 16:33 Resp 18 06/07/18 16:33 BP 134/96 H 06/07/18 16:33 Pulse Ox 96 06/07/18 16:33 - Labs Result Diagrams: 06/07/18 06:33 06/07/18 06:33 Labs: Laboratory Results - last 24 hr 06/07/18 06/07/18 06:33 06:33 WBC 9.4 RBC 4.38 Hgb 12.7 Hct 38.5 MCV 87.9 MCH 28.9 MCHC 32.9 L RDW 13.8 Plt Count 316 MPV 7.5 Neut % (Auto) 49.8 L Lymph % (Auto) 39.5 [place] % (Auto) 7.4 Eos % (Auto) 2.8 Baso % (Auto) 0.5 Neut # (Auto) 4.7 Lymph # (Auto) 3.7 [place] # (Auto) 0.7 Eos # (Auto) 0.3 Baso # (Auto) 0.0 Sodium 137 Potassium 3.6 Chloride 104 Carbon Dioxide 24 Anion Gap 13 BUN 12 Creatinine 0.8 Est GFR ( Amer) > 60 Est GFR (Non-Af Amer) > 60 Random Glucose 73 Calcium 8.7 Total Bilirubin 0.6 AST 23 ALT 22 Alkaline Phosphatase 80 Total Protein 7.3 Albumin 3.8 Globulin 3.5 Albumin/Globulin Ratio 1.1 TSH 3rd Generation 4.21
--- NOTE | 2018-06-10 05:17 | CP.PCM.DIS ---
Provider - Provider Date of Admission: 06/06/18 23:55 Attending physician: Nancy Brunson MD Consults: 06/07/18 01:58 Surgical [General Surgery Consult] Stat Comment: Consulting Provider: Fantasma Leone Consulting Physician: Fantasma Leone Reason for Consult: abdominal pain, r/out early tip appendicitis 06/07/18 08:06 ENVELOPE MACHINE ADJUSTER Consult Routine Comment: Consulting Provider: Jessica Medina Consulting Physician: Jessica Medina Reason for Consult: Ovarian Cyst Time Spent in preparation of Discharge (in minutes): 25 Diagnosis - Discharge Diagnosis (1) Intractable abdominal pain Status: Acute Hospital Course - Lab Results Lab Results: Most Recent Lab Values WBC 9.4 K/uL (4.8-10.8) 06/07/18 06:33 RBC 4.38 Mil/uL (3.80-5.20) 06/07/18 06:33 Hgb 12.7 g/dL (12.0-16.0) 06/07/18 06:33 Hct 38.5 % (34.0-47.0) 06/07/18 06:33 MCV 87.9 fl (81.0-99.0) 06/07/18 06:33 MCH 28.9 pg (27.0-31.0) 06/07/18 06:33 MCHC 32.9 g/dL (33.0-37.0) L 06/07/18 06:33 RDW 13.8 % (11.5-14.5) 06/07/18 06:33 Plt Count 316 K/uL (130-400) 06/07/18 06:33 MPV 7.5 fl (7.2-11.7) 06/07/18 06:33 Neut % (Auto) 49.8 % (50.0-75.0) L 06/07/18 06:33 Lymph % (Auto) 39.5 % (20.0-40.0) 06/07/18 06:33 [place] % (Auto) 7.4 % (0.0-10.0) 06/07/18 06:33 Eos % (Auto) 2.8 % (0.0-4.0) 06/07/18 06:33 Baso % (Auto) 0.5 % (0.0-2.0) 06/07/18 06:33 Neut # (Auto) 4.7 K/uL (1.8-7.0) 06/07/18 06:33 Lymph # (Auto) 3.7 K/uL (1.0-4.3) 06/07/18 06:33 [place] # (Auto) 0.7 K/uL (0.0-0.8) 06/07/18 06:33 Eos # (Auto) 0.3 K/uL (0.0-0.7) 06/07/18 06:33 Baso # (Auto) 0.0 K/uL (0.0-0.2) 06/07/18 06:33 Sodium 137 mmol/l (132-148) 06/07/18 06:33 Potassium 3.6 MMOL/L (3.6-5.0) 06/07/18 06:33 Chloride 104 mmol/L (98-107) 06/07/18 06:33 Carbon Dioxide 24 mmol/L (22-30) 06/07/18 06:33 Anion Gap 13 (10-20) 06/07/18 06:33 BUN 12 mg/dl (7-17) 06/07/18 06:33 Creatinine 0.8 mg/dl (0.7-1.2) 06/07/18 06:33 Est GFR ( Amer) > 60 06/07/18 06:33 Est GFR (Non-Af Amer) > 60 06/07/18 06:33 Random Glucose 73 mg/dL (65-105) 06/07/18 06:33 Calcium 8.7 mg/dL (8.4-10.2) 06/07/18 06:33 Total Bilirubin 0.6 mg/dl (0.2-1.3) 06/07/18 06:33 AST 23 U/L (14-36) 06/07/18 06:33 ALT 22 U/L (9-52) 06/07/18 06:33 Alkaline Phosphatase 80 U/L (38-126) 06/07/18 06:33 Total Protein 7.3 G/DL (6.3-8.2) 06/07/18 06:33 Albumin 3.8 g/dL (3.5-5.0) 06/07/18 06:33 Globulin 3.5 gm/dL (2.2-3.9) 06/07/18 06:33 Albumin/Globulin Ratio 1.1 (1.0-2.1) 06/07/18 06:33 Amylase 83 U/L (30-110) 06/06/18 16:00 Lipase 88 U/L (23-300) 06/06/18 16:00 TSH 3rd Generation 4.21 mIU/ML (0.46-4.68) 06/07/18 06:33 Urine Color Yellow (YELLOW) 06/06/18 16:00 Urine Clarity Cloudy (Clear) 06/06/18 16:00 Urine pH 5.0 (5.0-8.0) 06/06/18 16:00 Ur Specific [place] 1.023 (1.003-1.030) 06/06/18 16:00 Urine Protein Negative mg/dL (NEGATIVE) 06/06/18 16:00 Urine Glucose (UA) Neg mg/dL (NEGATIVE) 06/06/18 16:00 Urine Ketones Negative mg/dL (NEGATIVE) 06/06/18 16:00 Urine Blood Negative (NEGATIVE) 06/06/18 16:00 Urine Nitrate Negative (NEGATIVE) 06/06/18 16:00 Urine Bilirubin Negative (NEGATIVE) 06/06/18 16:00 Urine Urobilinogen 0.2-1.0 mg/dL (0.2-1.0) 06/06/18 16:00 Ur Leukocyte Esterase Trace [place]/uL (Negative) 06/06/18 16:00 Urine RBC (Auto) 3 /hpf (0-3) 06/06/18 16:00 Urine Microscopic WBC 5 /hpf (0-5) 06/06/18 16:00 Ur Squamous Epith Cells 4 /hpf (0-5) 06/06/18 16:00 Urine Bacteria Occ (<OCC) H 06/06/18 16:00 Discharge Exam - Head Exam Head Exam: ATRAUMATIC, NORMAL INSPECTION, NORMOCEPHALIC Discharge Plan - Follow Up Plan Condition: FAIR Disposition: HOME/ ROUTINE Instructions: Acute Abdomen (Belly Pain), Adult (DC) Additional Instructions: follow up with primary MD and ENVELOPE MACHINE ADJUSTER 1 week Referrals: Jessica Medina MD [Staff Provider] - Fantasma Leone MD [Staff Provider] -
== END 2018-06-07 23:00 | disposition home or self-care (01) ==
LOC: H.ER 15:00 → H.ERHOLD 23:55 → H.MEDSURG1 06-07 01:42
PROVIDERS: ADMIT Internal Medicine; ATTEND Internal Medicine
DX: N83.292 Other ovarian cyst, left side (principal); K21.9 Gastro-esophageal reflux disease without esophagitis; J45.909 Unspecified asthma, uncomplicated; M79.7 Fibromyalgia
CPT/HCPCS: 36415; 74177; 76830; 76856; 80053; 81003; 81025; 82150; 83690; 84443; 85025; 96374; 96375; 96376; 99285; G0378; J1885; J2270; J2405; J7030; Q9966; Q9967